=== PATIENT | male | born 1970 | race Caucasian/White ===

== ENCOUNTER 2021-11-29 11:32 | Emergency (ER) | payer OTHER, SELFPAY ==
[2021-11-29 11:48] VITALS: PULSE 95; RESP 20; TEMP 37.3; O2SAT 97; BMI 24.1
[2021-11-29 16:12] LABS: MANUAL DIFF FLAG NO
[2021-11-29 16:22] LABS: Basophils Percent Auto 0.3 % (0-2); Eosinophils Absolute Auto 0.1 X10*3/uL (0.0-0.4); Eosinophils Percent Auto 1.4 % (0-4); Hemoglobin 13.8 g/dl (14.0-18.0); Imm Gran Abs Auto 0.03 X10*3/uL (0.00-0.03); Imm Gran Pct Auto 0.5 % (0.0-0.4); Lymphocytes Absolute Auto 0.8 X10*3/uL (1.2-4.9); Lymphocytes Percent Auto 13.7 % (20-40); Mean Corpuscular HGB Conc 32.1 g/dl (31.0-36.0); Mean Corpuscular Hemoglobin 27.2 pg (27.0-33.0); Mean Corpuscular Volume 84.8 fL (80.0-98.0); Mean Platelet Volume 10.4 fL (9.4-12.4); Monocytes Absolute Auto 0.6 X10*3/uL (0.1-1.2); Monocytes Percent Auto 10.3 % (2-11); Neutrophils Absolute Auto 4.4 x10*3/uL (2.0-8.3); Neutrophils Percent Auto 73.8 % (45-73); Platelet Count 187 X10*3/uL (160-400); Red Blood Count 5.07 X10*6/uL (4.60-5.80); Red Cell Distribution Width 17.2 % (11.0-16.0); White Blood Count 5.9 X10*3/uL (4.8-10.8)
[2021-11-29 16:24] LABS: Appearance Urine Clear; Color Urine Yellow; Glucose Urine UA Negative (Negative); Leukocyte Esterase Urine Negative (Negative); Nitrite Urine Negative (Negative); PH 7.5 (5.0-9.0); Urine Blood Negative (Negative); Urine Ketones Negative (Negative); Urine Protein Negative (Neg-Trace)
--- NOTE | 2021-11-29 16:29 | ED_ITS ---
HPI - Extremity Problem General Chief complaint: Extremity Problem Stated complaint: Neuropathy Time Seen by Provider: 11/29/21 15:04 Source: patient Mode of arrival: ambulatory Limitations: no limitations History of Present Illness HPI Narrative: Patient presents emergency department for evaluation of chronic neuropathy. Patient states that he is in remission from colorectal cancer since 2019. After receiving chemo and radiation as well as surgery he developed neuropathy to the bilateral feet. States that this is been progressing over time. Over the past few months it is seemed increasingly more painful increasing numbness to the feet and having shooting pain off the bilateral legs. Reporting the right to be worse than the left. He states that he called his oncologist locally approximately 3 months ago to discuss his symptoms, oncology reviewed an MRI that he had approximately 1 year ago with his primary care provider in [place]. He states he was advised there is likely something pinching the nerve around the area of L5-L6, but recall the specifics. When asked if there is concern for a mass he states no. He is currently taking gabapentin 300 mg 3 times daily as well as ibuprofen throughout the day without significant change to his symptoms. He would like to see a neurologist, however he states he has contacted multiple local neurologists and was advised that he needs a referral from a primary care provider which he has not established care with any local PCP at this time. Denies identifiable precipitating injury, fevers, chills, burning with micturition, urinary frequency, urgency, hesitancy, bladder or bowel dysfunction, numbness or tingling of the perineum. Denies any recent surgical procedures, any known immune compromising conditions, or IV drug usage. Related Data Allergies Allergy/AdvReac Type Severity Reaction Status Date / Time No Known Allergies Allergy Verified 11/29/21 11:53 Review of Systems Review of Systems: Constitutional: No weight loss. No fever. No chills. No weakness. No fatigue. Eye: No swelling. No redness. ENT: No sore throat. No rhinorrhea. No nasal congestion. No sore throat. No difficulty swallowing. Skin: No rash. No itching. Cardiovascular: No chest pain. No chest pressure. No palpitations. No pedal edema. Respiratory: No shortness of breath. No cough. No sputum production. Gastrointestinal: No anorexia. No nausea. No vomiting. No diarrhea. No abdominal pain. No blood in stool. Genitourinary: No burning micturition. No urinary frequency. No incontinence. Neurologic: No headache. No dizziness. No pre-syncope/ syncope. No unilateral weakness. No ataxia. Positive numbness. No change in bowel or bladder control. Musculoskeletal: No muscle pain. No back pain. No joint pain. No stiffness. Hematologic: No bleeding. No bruising. Lymphatics: No enlarged lymph nodes. Psychiatric:No depression. No anxiety. Endocrine: No polyuria. No polydipsia. Yes all other systems are reviewed and are negative [facility] Past Medical History Attestation statement: The following information was validated with the patient. Source: old records reviewed Social History Social History Advance Directives: No Advance Directives Information Provided: Yes Physical Exam Vital Signs: Vital Signs: Last Vital Signs Temp 98.3 F 11/29/21 16:52 Pulse 75 11/29/21 16:52 Resp 16 11/29/21 16:52 BP 150/89 H 11/29/21 16:52 Pulse Ox 99 11/29/21 16:52 O2 Del Method 11/29/21 16:52 BMI result Body Mass Index 24.1 Appearance: Alert.?Oriented to person, place and time. No acute distress. ?Normal affect. Eyes: Pupils equal, round and reactive to light.? ENT: Pharynx normal.?? Neck: Normal inspection.? Neck supple.?? CVS: Heart sounds normal. Normal heart rate and rhythm.? Pulses normal; bilateral radial pulses 2+, bilateral posterior tibial/dorsalis pedis pulses 2+.? Respiratory: No respiratory distress.? Lung sounds clear to auscultation bilaterally?? Abdomen: Soft and non-tender. Normoactive bowel sounds. ? Skin: Skin warm and dry.? Normal skin color.? ? Extremities: No lower extremity edema.? No calf ttp? Back: No CVA tenderness. No midline spinal tenderness, step-off's, or deformity. Full ROM intact in bilateral lower extremities. No rashes, lesions, areas of induration or fluctuance, or signs of infection noted., Neuro: Moves all extremities spontaneously. 5/5 strength in hip extension/flexion, abduction, adduction. Sensation to light touch intact bilaterally. Patellar and Achilles reflex 2+ bilaterally. No ataxia, gait normal and steady. No focal neuro deficits. Course Course Course Narrative: patient is a 51-year-old male with a past medical history of colorectal cancer in remission, and peripheral neuropathy presented to emergency department for evaluation neuropathy. Requesting referral to Neurology. He states he is contacted Neurology associated with this hospital system but was advised that they will only accept referral from primary care provider which he does not have locally as he moved from [place] earlier this year. Reports worsening of his chronic neuropathy to the bilateral feet with shooting pains up his legs over the past few months. Pain is most likely involvement of his chronic neuropathy however will obtain basic labs including CBC, CMP, B12, thyroid level, urinalysis. Reevaluation(s) Reevaluation #1: CBC is overall unremarkable, very mild normocytic anemia with hemoglobin at 13.8. CMP is overall unremarkable. TSH is normal. B12 is pending, will not result today. Random glucose is 79, urinalysis without glucosuria or ketonuria, does not seem consistent with diabetic related neuropathy. On neurological exam there are no deficits, cannot completely exclude herniated disc as a source for worsening neuropathy. Not consistent with spinal fracture, spinal infection, epidural abscess, AAA, epidural abscess, or dissection. On exam no concern for cauda equina syndrome. discussed with patient that he may need to have outpatient MRI obtained given has been approximately 1 year since his prior there were some findings by his account, however no indications for emergent MRI from the emergency department. Plan for discharge home, Continued use of gabapentin and anti-inflammatories as prescribed, will provide contact information for neurologist office at his request in send referral, however he still may need to have a primary care referral as he was previously advised. Reviewed worrisome signs and symptoms to return back to the emergency department for. All questions were answered. Patient discharged home in stable condition. Ambulatory with a steady gait. Time: 17:38 MDM - Extremity (Nontraumatic) Lab Data Result diagrams: 11/29/21 15:46 11/29/21 15:46 Labs: Lab Results 11/29/21 11/29/21 11/29/21 Range/Units 15:46 15:46 16:12 WBC 5.9 (4.8-10.8) X10*3/uL RBC 5.07 (4.60-5.80) X10*6/uL Hgb 13.8 L (14.0-18.0) g/dl Hct 43.0 (42.0-52.0) % MCV 84.8 (80.0-98.0) fL MCH 27.2 (27.0-33.0) pg MCHC 32.1 (31.0-36.0) g/dl RDW 17.2 H (11.0-16.0) % Plt Count 187 (160-400) X10*3/uL MPV 10.4 (9.4-12.4) fL Immature Gran % (Auto) 0.5 H (0.0-0.4) % Neut % (Auto) 73.8 H (45-73) % Lymph % (Auto) 13.7 L (20-40) % [place] % (Auto) 10.3 (2-11) % Eos % (Auto) 1.4 (0-4) % Baso % (Auto) 0.3 (0-2) % Lymph # (Auto) 0.8 L (1.2-4.9) X10*3/uL [place] # (Auto) 0.6 (0.1-1.2) X10*3/uL Eos # (Auto) 0.1 (0.0-0.4) X10*3/uL Baso # (Auto) 0.0 (0.0-0.2) X10*3/uL Abs Immat Gran (auto) 0.03 (0.00-0.03) X10*3/uL Absolute Neuts (auto) 4.4 (2.0-8.3) x10*3/uL Absolute Nucleated RBC 0.000 (0.0-0.012) X10*3/uL Nucleated RBC % (auto) 0.0 (0.0-0.2) /100WBC Sodium 139 (135-145) mmol/L Potassium 4.0 (3.3-5.1) mmol/L Chloride 98 (96-108) mmol/L Carbon Dioxide 28 (22-29) mmol/L Anion Gap 17 (12-20) BUN 11 (9-16) mg/dL Creatinine 0.74 (0.5-1.4) mg/dL Estim Creat Clear Calc 137.3 Estimated GFR > 60 Random Glucose 79 (60-115) mg/dL Calcium 9.5 (8.4-10.2) mg/dL Magnesium 1.9 (1.6-2.6) mg/dL Total Bilirubin 0.6 (0.0-1.0) mg/dL AST 33 (5-37) U/L ALT 25 (0-40) U/L Alkaline Phosphatase 72 (39-117) U/L Total Protein 8.3 H (6.5-8.0) g/dL Albumin 4.4 (3.5-5.0) g/dL TSH 0.58 (0.32-4.0) uIU/mL Urine Color Yellow Urine Appearance Clear Urine pH 7.5 (5.0-9.0) Ur Specific [place] 1.020 (1.005-1.025) Urine Protein Negative (Neg-Trace) mg/dL Urine Glucose (UA) Negative (Negative) mg/dL Urine Ketones Negative (Negative) mg/dL Urine Blood Negative (Negative) Urine Nitrite Negative (Negative) Ur Leukocyte Esterase Negative (Negative) Discharge Plan Discharge Clinical Impression: Peripheral neuropathy Patient Disposition: Home, Self-Care Instructions: Peripheral Neuropathy (ED) Additional Instructions: return back to emergency department with any new or worsening symptoms or concerns. Your blood work today was overall normal. I do not see evidence of diabetes as we discussed. Please contact primary care offices to obtain a new provider, and discuss with your previous primary care provider a possible referral to a local neurologist as you requested. Continue taking your medications as prescribed. You may return to emergency department with any new or worsening symptoms or concerns. Interventions: ED Discharge Assessment Last Done: 11/29/21 18:09 Discharge Date/Time: 11/29/21 18:09
[2021-11-29 16:31] LABS: Alanine Aminotransferase 25 U/L (0-40); Albumin Level 4.4 g/dL (3.5-5.0); Alkaline Phosphatase 72 U/L (39-117); Anion Gap 17 (12-20); Aspartate Amino Transferase 33 U/L (5-37); Bilirubin Total 0.6 mg/dL (0.0-1.0); Blood Urea Nitrogen 11 mg/dL (9-16); Calcium 9.5 mg/dL (8.4-10.2); Carbon Dioxide 28 mmol/L (22-29); Chloride 98 mmol/L (96-108); Creatinine Clr Calc Pharmacy 137.3; Estimated Glomerular Filt Rate > 60; Glucose Random 79 mg/dL (60-115); Magnesium 1.9 mg/dL (1.6-2.6); Sodium 139 mmol/L (135-145); Total Protein 8.3 g/dL (6.5-8.0)
[2021-11-29 16:52] VITALS: BP 150/89; PULSE 75; RESP 16; TEMP 36.8; O2SAT 99
[2021-11-29 16:52] LABS: TSH reflex Free T4 0.58 uIU/mL (0.32-4.0)
[2021-11-30 05:40] LABS: Vitamin B12 563 pg/mL (200-900)
== END 2021-11-29 18:09 | disposition home or self-care (01) ==
PROVIDERS: Nurse Practitioner Family; Emergency Provider Emergency Medicine
DX: G62.9 Polyneuropathy, unspecified (principal); Z79.899 Other long term (current) drug therapy
CPT/HCPCS: 36415; 80053; 81003; 82607; 83735; 84443; 85025; 99283

== ENCOUNTER 2023-05-03 12:17 | Inpatient (IN) | payer OTHER, SELFPAY ==
--- NOTE | ~2023-05-03 | XR_ITS ---
EXAMINATION: XR CHEST CLINICAL INFORMATION: Chest pain COMPARISON: None available. TECHNIQUE: 2 views of the chest were obtained. FINDINGS: Lungs are well-inflated and clear. Trachea is midline in position. No interstitial disease, consolidation or mass. No pleural effusion or pneumothorax. Cardiac silhouette and pulmonary vessels are normal in size. The mediastinum and vikas have normal contour. There appears to be an old fracture deformity of the mid third of the right clavicle. XR/XR chest 2V IMPRESSION: Lungs have a normal appearance. No acute cardiopulmonary abnormality.
--- NOTE | ~2023-05-03 | CT_ITS ---
EXAMINATION: CT ANGIOGRAM OF THE CHEST WITH AND WITHOUT CONTRAST (CT PULMONARY ANGIOGRAM FOR PE) CLINICAL INFORMATION: Reason for Exam dyspnea COMPARISON: Previous chest x-ray from earlier the same day TECHNIQUE: Prior to contrast administration, noncontrast localization images were obtained. Subsequently, multidetector volumetric imaging was performed from the thoracic inlet to below the diaphragms following the administration of 65 mL Omnipaque 350 intravenous contrast. No contrast reaction reported Sagittal, coronal, and MIP oblique sagittal reformatted images were obtained on the CT workstation, uploaded to PACS, and reviewed. This CT examination was performed using dose optimization techniques as appropriate, variously including the following: *Automated exposure control *Adjustment of mA and/or kV according to patient size (this includes techniques or standardized protocols for targeted exams where dose is matched to indication/reason for exam; i.e. extremities or head) *Use of iterative reconstruction technique Total exam dose-length product 344 mGy-cm FINDINGS: QUALITY OF STUDY/CONTRAST BOLUS: Satisfactory. PULMONARY ARTERIES: No pulmonary emboli. THORACIC AORTA: No aneurysm. LUNG: Scarring or or subsegmental atelectasis in the posterior segment of the right upper lobe axial image 120 series 7. Lungs are otherwise clear. PLEURA: No pleural effusion or pneumothorax. MEDIASTINUM: Normal heart size. No pericardial effusion. No hilar or mediastinal lymphadenopathy. No evidence of septal bowing or right heart strain. CORONARY ARTERY CALCIFICATION: Moderate CHEST WALL/AXILLA: No axillary or internal mammary lymphadenopathy. OSSEOUS STRUCTURES: No acute or suspicious osseous abnormality. Old right clavicle fracture. Old right posterior 10th rib fracture. UPPER ABDOMEN: There may be fatty infiltration of the liver. No reflux of contrast into the hepatic veins to suggest elevated right heart pressures. CT/CT angio chest PE protocol IMPRESSION: No evidence of pulmonary embolism. No evidence for acute disease in the chest. Moderate coronary artery calcification. VTE: negative
[2023-05-03 12:24] VITALS: BP 127/81; BP 137/90; PULSE 94; PULSE 97; RESP 20; O2SAT 100; BMI 23.8
--- NOTE | 2023-05-03 12:30 | ECG_ITS ---
Test Reason : chest pain Blood Pressure : / mmHG Vent. Rate : 095 BPM Atrial Rate : 095 BPM P-R Int : 154 ms QRS Dur : 078 ms QT Int : 392 ms P-R-T Axes : 070 028 049 degrees QTc Int : 492 ms Normal sinus rhythm Prolonged QT Abnormal ECG No previous ECGs available Referred By: Austin Luong Electronically Signed By:JULIAN ONTIVEROS MD
--- NOTE | 2023-05-03 12:38 | ED.CHESTPAIN ---
HPI - Chest Pain General Chief Complaint: Chest Pain Stated Complaint: CP,SOB PER EMS Time Seen by Provider: 05/03/23 12:18 Source: patient and EMS Mode of arrival: EMS Limitations: no limitations History of Present Illness HPI narrative: 52 years old with history of hypertension, colorectal cancer status post chemo and left-sided colostomy, presents emergency room for episode of sudden onset chest pain associated with diffuse cramping to legs and arbs. Patient also reports that he is having hard time catching his breath. Patient reports that symptoms started while he was at work and describes the pain as central, nonradiating, constant but with different intensity, 7/10 at worse. Patient reports mild improvement with resting. Patient denies cough or fever Reports that colostomy is working appropriately Denies nausea, vomiting, reports mild abdominal pain when pain started that has since then resolved. Related Data Home Medications Medication Instructions Recorded Confirmed amlodipine 2.5 mg tablet 2.5 mg PO DAILY 05/03/23 05/03/23 lisinopril 20 1 tab PO DAILY 05/03/23 05/03/23 mg-hydrochlorothiazide 12.5 mg tablet Allergies Allergy/AdvReac Type Severity Reaction Status Date / Time No Known Allergies Allergy Verified 11/29/21 11:53 [facility] Past Medical History Medical History (Updated 05/03/23 @ 17:13 by Austin Luong MD) Hypertension Social History Social History Alcohol intake: current Smoked in Last 30 Days: No Use of substances other than those prescribed or required for medical reasons: Yes Substance Use Type: Marijuana Advance Directives: No Advance Directives Information Provided: Yes Physical Exam Vital Signs: Vital Signs: Last Vital Signs Temp 98.2 F 05/03/23 16:04 Pulse 104 H 05/03/23 16:04 Resp 18 05/03/23 16:04 BP 139/86 05/03/23 16:04 Pulse Ox 97 05/03/23 16:04 O2 Del Method Room Air 05/03/23 16:04 BMI result Body Mass Index 23.8 General: Alert, Not in Distress Skin: No rash, warm HEENT: Atraumatic, No Exudate or Pharyngeal Erythema Resp: Normal Breath sounds bilaterally Cardio: Regular rate and Rhythm, Normal S1, S2 ABD: Abd soft, non tender, no guarding or rebound. Normal Bowel sounds. norml functioning colostomy : No cva tenderness Neuro: Alert, oriented x4, PERRL Strenght 5/5 on all extremities Sensation is preserved in both lower and upper extremities Index to nose: normal Cranial Nerves II-XII grossly intact No dysarthria, or aphasia No neglet. Visual atkins are normal bilaterally Psych: Cooperative, NO SI Course Reevaluation(s) Reevaluation #1: Patient reports improvement of pain after nitroglycerin. Patient's blood work which I personally reviewed showed elevated lactic acid of 6.5 at this time I am not sure of the source of the lactic acidosis. We were unable to obtain an reliable oral temperature therefore will insert Olmedo catheter to obtain a temperature from the bladder as a core temperature. We also had blood cultures, urine cultures and will start the patient on IV fluids. Patient lab work was also remarkable for potassium of 5.9, reviewing the EKG that he is some minimal peak T-wave which may be secondary to hyperkalemia therefore will give calcium. Patient is systemically looks well. Time: 13:00 Reevaluation #2: Multiple unsuccessful attempts to place Olmedo catheter. It appears that cataract get stuck at the prostate site, q.day catheter does not have time sensitive Olmedo. Patient is compliant at this time we get urine culture has a clean catch. As for his temperature repeated oral temperature is 97.4. Patient feels better. Will repeat 2nd troponin. + Time: 14:54 Reevaluation #3: Second troponin is negative and lactic acid has improved after 1 L of fluid. At this time patient does not have any signs of sepsis. Unclear why had an elevated lactic acid on presentation. Considering fissure of the pain which improved with nitro started the with minimal exertion I discussed the case with cardiology who agrees with unstable angina among possible differential diagnosis and recommended admission for inpatient stress test. Patient reports the pain has completely resolved. Patient had multiple episodes of PVCs on monitor. Will admit Time: 17:11 Consultations Consultation #1: Cardiology: Admit for inpatient stress test Medications Administered Discontinued Medications Generic Name Dose Route Start Last Admin Trade Name Freq PRN Reason Stop Dose Admin Sodium Chloride 500 mls @ 999 mls/hr 05/03/23 13:45 05/03/23 13:51 Ns IV 05/03/23 14:15 999 mls/hr .Q31M JOAO Administration Calcium Gluconate 1 gm in 50 mls @ 50 mls/hr 05/03/23 13:43 05/03/23 13:51 Calcium Gluconate IV 05/03/23 14:42 50 mls/hr ONCE ONE Administration Iohexol 85 ml 05/03/23 15:52 05/03/23 15:53 Iohexol 350 Mg/Ml 100 Ml Infus..Btl IV 05/03/23 15:53 85 ml ONCE ONE Administration Lorazepam 1 mg 05/03/23 14:03 05/03/23 14:06 Lorazepam 2 Mg/Ml Vial IVPUSH 05/03/23 14:04 1 mg ONCE ONE Administration Medical Decision Making Medical Decision Making [facility] Narrative: Patient presented to the emergency for chest pain which appears to be exertional in nature. Moderate in intensity on arrival, patient has received 324 mg of aspirin EN route. Possible differential diagnosis include ACS, musculoskeletal pain, PE Patient temperature was mildly hypothermic on arrival. Patient however does not have any other signs of infection therefore I think this is possible to be an error Due to the colon cancer will defer rectal temp and will repeat temp in the minutes Plan CBC, BMP, serial troponin at 0 and 3 hours Chest x-ray D-dimer EKG Lab Data 05/03/23 12:41 05/03/23 12:41 Labs: Lab Results 05/03/23 05/03/23 05/03/23 Range/Units 12:41 12:44 12:48 WBC 8.8 (4.8-10.8) X10*3/uL RBC 5.45 (4.60-5.80) X10*6/uL Hgb 16.6 D (14.0-18.0) g/dl Hct 48.8 (42.0-52.0) % MCV 89.5 (80.0-98.0) fL MCH 30.5 (27.0-33.0) pg MCHC 34.0 (31.0-36.0) g/dl RDW 14.4 (11.0-16.0) % Plt Count 219 (160-400) X10*3/uL MPV 10.3 (9.4-12.4) fL Immature Gran % (Auto) 0.8 H (0.0-0.4) % Neut % (Auto) 83.6 H (45-73) % Lymph % (Auto) 7.1 L (20-40) % [place] % (Auto) 8.0 (2-11) % Eos % (Auto) 0.2 (0-4) % Baso % (Auto) 0.3 (0-2) % Lymph # (Auto) 0.6 L (1.2-4.9) X10*3/uL [place] # (Auto) 0.7 (0.1-1.2) X10*3/uL Eos # (Auto) 0.0 (0.0-0.4) X10*3/uL Baso # (Auto) 0.0 (0.0-0.2) X10*3/uL Abs Immat Gran (auto) 0.07 H (0.00-0.03) X10*3/uL Absolute Neuts (auto) 7.3 (2.0-8.3) x10*3/uL Absolute Nucleated RBC 0.000 (0.0-0.012) X10*3/uL Nucleated RBC % (auto) 0.0 (0.0-0.2) /100WBC D-Dimer High Sensitivty 291 NG/ML VBG pH 7.47 H (7.32-7.43) VBG pCO2 32 mmHg VBG pO2 30 mmHg VBG HCO3 24 (22-26) mmol/L VBG O2 Saturation 41.0 % VBG Base Excess 1.3 mmol/L Sodium 137 (135-145) mmol/L Potassium 5.9 H (3.3-5.1) mmol/L Chloride 97 (96-108) mmol/L Carbon Dioxide 24 (22-29) mmol/L Anion Gap 22 H (12-20) BUN 10 (9-16) mg/dL Creatinine 1.41 H (0.5-1.4) mg/dL Estim Creat Clear Calc 71.2 Estimated GFR 53 Random Glucose 155 H (60-115) mg/dL Lactic Acid 6.5 H* (0.5-2.0) mmol/L Lactic Acid F/U @ 2Hr (0.5-2.0) mmol/L Calcium 10.0 (8.4-10.2) mg/dL Troponin I High Sens 4.1 (<3.5-35.0) ng/L 05/03/23 Range/Units 15:11 WBC (4.8-10.8) X10*3/uL RBC (4.60-5.80) X10*6/uL Hgb (14.0-18.0) g/dl Hct (42.0-52.0) % MCV (80.0-98.0) fL MCH (27.0-33.0) pg MCHC (31.0-36.0) g/dl RDW (11.0-16.0) % Plt Count (160-400) X10*3/uL MPV (9.4-12.4) fL Immature Gran % (Auto) (0.0-0.4) % Neut % (Auto) (45-73) % Lymph % (Auto) (20-40) % [place] % (Auto) (2-11) % Eos % (Auto) (0-4) % Baso % (Auto) (0-2) % Lymph # (Auto) (1.2-4.9) X10*3/uL [place] # (Auto) (0.1-1.2) X10*3/uL Eos # (Auto) (0.0-0.4) X10*3/uL Baso # (Auto) (0.0-0.2) X10*3/uL Abs Immat Gran (auto) (0.00-0.03) X10*3/uL Absolute Neuts (auto) (2.0-8.3) x10*3/uL Absolute Nucleated RBC (0.0-0.012) X10*3/uL Nucleated RBC % (auto) (0.0-0.2) /100WBC D-Dimer High Sensitivty NG/ML VBG pH (7.32-7.43) VBG pCO2 mmHg VBG pO2 mmHg VBG HCO3 (22-26) mmol/L VBG O2 Saturation % VBG Base Excess mmol/L Sodium (135-145) mmol/L Potassium (3.3-5.1) mmol/L Chloride (96-108) mmol/L Carbon Dioxide (22-29) mmol/L Anion Gap (12-20) BUN (9-16) mg/dL Creatinine (0.5-1.4) mg/dL Estim Creat Clear Calc Estimated GFR Random Glucose (60-115) mg/dL Lactic Acid (0.5-2.0) mmol/L Lactic Acid F/U @ 2Hr 1.9 (0.5-2.0) mmol/L Calcium (8.4-10.2) mg/dL Troponin I High Sens < 2.7 (<3.5-35.0) ng/L Independent Interpretation I performed an independent interpretation of an: EKG Interpretation: Sinus rhythm, unchanged from EKG from EMS. Discharge Plan Discharge Clinical Impression: Chest pain Patient Disposition: Admitted As Inpatient Prescriptions: No Action lisinopril-hydrochlorothiazide 20-12.5 mg tablet 1 tab PO DAILY amlodipine 2.5 mg tablet 2.5 mg PO DAILY
[2023-05-03 12:47] LABS: MANUAL DIFF FLAG NO
[2023-05-03 12:51] LABS: Venous Blood Gas Refer to POC result
[2023-05-03 12:53] LABS: VBG Base Excess 1.3 mmol/L; VBG HCO3 24 mmol/L (22-26); VBG pCO2 32 mmHg; VBG pH 7.47 (7.32-7.43); VBG pO2 30 mmHg
[2023-05-03 13:02] LABS: Basophils Percent Auto 0.3 % (0-2); Eosinophils Percent Auto 0.2 % (0-4); Hematocrit 48.8 % (42.0-52.0); Hemoglobin 16.6 g/dl (14.0-18.0); Imm Gran Abs Auto 0.07 X10*3/uL (0.00-0.03); Imm Gran Pct Auto 0.8 % (0.0-0.4); Lymphocytes Absolute Auto 0.6 X10*3/uL (1.2-4.9); Lymphocytes Percent Auto 7.1 % (20-40); Mean Corpuscular Hemoglobin 30.5 pg (27.0-33.0); Mean Corpuscular Volume 89.5 fL (80.0-98.0); Mean Platelet Volume 10.3 fL (9.4-12.4); Monocytes Absolute Auto 0.7 X10*3/uL (0.1-1.2); Neutrophils Absolute Auto 7.3 x10*3/uL (2.0-8.3); Neutrophils Percent Auto 83.6 % (45-73); Platelet Count 219 X10*3/uL (160-400); Red Blood Count 5.45 X10*6/uL (4.60-5.80); Red Cell Distribution Width 14.4 % (11.0-16.0); White Blood Count 8.8 X10*3/uL (4.8-10.8)
[2023-05-03 13:06] LABS: D Dimer High Sensitivity 291 NG/ML
[2023-05-03 13:14] LABS: Troponin-I High Sensitivity 4.1 ng/L (<3.5-35.0)
[2023-05-03 13:25] LABS: Potassium 5.9 mmol/L (3.3-5.1)
[2023-05-03 13:26] LABS: Anion Gap 22 (12-20); Blood Urea Nitrogen 10 mg/dL (9-16); Carbon Dioxide 24 mmol/L (22-29); Chloride 97 mmol/L (96-108); Creatinine Clr Calc Pharmacy 71.2; Estimated Glomerular Filt Rate 53; Glucose Random 155 mg/dL (60-115); Sodium 137 mmol/L (135-145)
[2023-05-03 13:35] LABS: Lactic Acid 6.5 mmol/L (0.5-2.0)
[2023-05-03] MEDS: Calcium Gluconate/NaCl,Iso-Osm 1 GM/50 ML PLAST..BAG IV (13:51)
[2023-05-03] MEDS: 0.9 % Sodium Chloride 500 ML 999 ML IV (13:51)
[2023-05-03] MEDS: LORazepam 2 MG/ML VIAL 1 MG IVPUSH (14:06)
[2023-05-03 14:47] LABS: Reflex Lactate? Lactic Acid Added
[2023-05-03 15:25] LABS: ~Lactic Acid-LAB USE ONLY 1.9 mmol/L (0.5-2.0)
[2023-05-03 15:36] LABS: Troponin-I High Sensitivity < 2.7 ng/L (<3.5-35.0)
[2023-05-03] MEDS: iohexoL 350 MG/ML 100 ML INFUS..BTL 85 ML IV (15:53)
[2023-05-03 16:04] VITALS: BP 139/86; PULSE 104; RESP 18; TEMP 36.8; O2SAT 97
--- NOTE | 2023-05-03 16:50 | P.HPHOSP_ITS ---
<Statement entered by Tigre Patino MD - 05/16/23 15:07> The patient was seen and evaluated with Mercedes Griggs NP. I agree with her note, assessment and plan with the following. In summary, A 52 years old male with PMH of HTN and GERD presenting with central chest pain. #Chest pain EKG non specific , low Trop Monitor on telemetry Cardiology consultation Aspirin #MADDIE with hyperkalemia Lokelma, follow BMP IV fluids avoid nephrotoxins Rest of evaluations by [employer] note. History of Present Illness Date of Service: 05/03/23 Chief Complaint: Chest pain 52-year-old man with history of hypertension presented to the ER with complaints of sudden onset central, nonradiating, constant, 7/10 chest pain. He also reports a hard time catching his breath, diffuse cramping to legs and arms. 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 He developed chest pain at that time and had for at least 2 hours. Denied nausea, vomiting, diarrhea, recent travel, sick contacts, recent illness. Potassium noted to be elevated at 5.9, initial lactic acid 6.5 down to 1.9, creatinine 1.41, troponin 2.7. EKG shows peaked T-waves and normal sinus rhythm without any ischemic changes. Chest x-ray without consolidation or effusion. Vital signs are stable. Plan is to place the patient on observation for chest pain. Review of Systems 2 Review of Systems: Denies any recent fever chills or decrease in appetite respiratory denies any shortness of breath or cough cardiovascular see HPI gastrointestinal denies any dysphagia abdominal pain nausea vomiting or diarrhea genitourinary denies any dysuria frequency or hematuria musculoskeletal denies any joint pain or swelling neuropsych denies any weakness or seizures all other systems reviewed are negative [facility] Medical History (Updated 05/03/23 @ 17:13 by Austin Luong MD) Hypertension Family History (Updated 05/03/23 @ 18:34 by Mercedes Griggs NP) Mother Dementia Social History Alcohol intake: current Patient Tobacco Use Status: Never used Tobacco Smoked in Last 30 Days: No Use of substances other than those prescribed or required for medical reasons: Yes Substance Use Type: Marijuana Advance Directives: No Advance Directives Information Provided: Yes Nutrition Risks: No Nutritional Risk Meds Allergies Allergy/AdvReac Type Severity Reaction Status Date / Time No Known Allergies Allergy Verified 11/29/21 11:53 Active Medications: Current Medications Acetaminophen (Acetaminophen 325 Mg Tablet) 650 mg PO Q6H PRN PRN Reason: Pain, Mild (Pain Scale 1-3) Enoxaparin Sodium (Enoxaparin Sodium 40 Mg/0.4 Ml Syringe) 40 mg SUBCUT Q24H JOAO Nitroglycerin (Nitroglycerin 0.4 Mg Tab.Subl) 0.4 mg SUBLINGUAL Q5MX3 PRN PRN Reason: Chest Pain Ondansetron HCl (Ondansetron Hcl 4 Mg/2 Ml Vial) 4 mg IVPUSH Q8H PRN PRN Reason: Nausea and Vomiting Sodium Chloride (0.9 % Sodium Chloride Flush 3 Ml Syringe) 3 ml IVFLUSH QSHIFT JOAO Home Medications Medication Instructions Recorded Confirmed Last Taken Type amlodipine 2.5 mg tablet 2.5 mg PO DAILY 05/03/23 05/03/23 05/03/23 History lisinopril 20 1 tab PO DAILY 05/03/23 05/03/23 05/03/23 History mg-hydrochlorothiazide 12.5 mg tablet Physical Exam 2 Vital Signs and Narrative: Vital Signs: Last Vital Signs Temp 98.2 F 05/03/23 16:04 Pulse 104 H 05/03/23 16:04 Resp 18 05/03/23 16:04 BP 139/86 05/03/23 16:04 Pulse Ox 97 05/03/23 16:04 O2 Del Method Room Air 05/03/23 16:04 BMI result Body Mass Index 23.8 Appearing in no acute distress head is normocephalic atraumatic eyes pupils are PERRLA sclera is anicteric mouth throat mucous membranes are intact and moist neck is supple no lymphadenopathy, no JVD noted lung sounds are clear to auscultation heart regular rate rhythm, clear S1, S2 positive bowel sounds, abdomen is soft, nontender neuro patient is alert x3, no focal deficits Results Labs 05/03/23 12:41 05/03/23 12:41 Labs: Laboratory Results - last 24 hr 05/03/23 05/03/23 05/03/23 12:41 12:44 12:48 MCV 89.5 MCH 30.5 MCHC 34.0 RDW 14.4 Plt Count 219 MPV 10.3 Immature Gran % (Auto) 0.8 H Neut % (Auto) 83.6 H Lymph % (Auto) 7.1 L [place] % (Auto) 8.0 Eos % (Auto) 0.2 Baso % (Auto) 0.3 Lymph # (Auto) 0.6 L [place] # (Auto) 0.7 Eos # (Auto) 0.0 Baso # (Auto) 0.0 Abs Immat Gran (auto) 0.07 H Absolute Neuts (auto) 7.3 Absolute Nucleated RBC 0.000 Nucleated RBC % (auto) 0.0 D-Dimer High Sensitivty 291 VBG pH 7.47 H VBG pCO2 32 VBG pO2 30 VBG HCO3 24 VBG O2 Saturation 41.0 VBG Base Excess 1.3 Anion Gap 22 H Estim Creat Clear Calc 71.2 Estimated GFR 53 Random Glucose 155 H Lactic Acid 6.5 H* Lactic Acid F/U @ 2Hr Calcium 10.0 Troponin I High Sens 4.1 05/03/23 15:11 MCV MCH MCHC RDW Plt Count MPV Immature Gran % (Auto) Neut % (Auto) Lymph % (Auto) [place] % (Auto) Eos % (Auto) Baso % (Auto) Lymph # (Auto) [place] # (Auto) Eos # (Auto) Baso # (Auto) Abs Immat Gran (auto) Absolute Neuts (auto) Absolute Nucleated RBC Nucleated RBC % (auto) D-Dimer High Sensitivty VBG pH VBG pCO2 VBG pO2 VBG HCO3 VBG O2 Saturation VBG Base Excess Anion Gap Estim Creat Clear Calc Estimated GFR Random Glucose Lactic Acid Lactic Acid F/U @ 2Hr 1.9 Calcium Troponin I High Sens < 2.7 Imaging Radiologist's Impressions: Impressions Chest X-Ray 05/03/23 13:08 IMPRESSION: Lungs have a normal appearance. No acute cardiopulmonary abnormality. Assessment and Plan (1) Chest pain: Status: Acute Plan 52-year-old man placed on observation for chest pain Chest pain Monitor on telemetry Cardiology consultation Aspirin Hyperkalemia secondary to MADDIE lokelma follow up BMP MADDIE unknown etiology check UA IV fluids avoid nephrotoxins History of colorectal cancer Left-sided colostomy DVT prophylaxis with Lovenox Full code Observation Quality Stroke Does the patient have a stroke diagnosis?: No VTE Prior VTE?: No VTE Risk Level:: Medical - moderate - high VTE Device Contraindication: Treatment Not Indicated VTE Drug Contraindication: N/A - Med Ordered
--- NOTE | 2023-05-03 16:55 | PHA.MEDREC ---
Pharmacy Consult ? Medication Reconciliation Pharmacy has completed the medication reconciliation. Patient reported medicaitons. Amira Cunningham, Vero[employer]
[2023-05-03 17:31] VITALS: BP 130/89; PULSE 101; RESP 18; TEMP 36.8; O2SAT 95
[2023-05-03] MEDS: Enoxaparin Sodium 40 MG/0.4 ML SYRINGE SUBCUT (17:59)
[2023-05-03] MEDS: Acetaminophen 325 MG TABLET 650 MG PO (18:04)
[2023-05-03 18:53] LABS: Appearance Urine Clear; Color Urine Yellow; Glucose Urine UA Negative (Negative); Leukocyte Esterase Urine Negative (Negative); Nitrite Urine Negative (Negative); PH 6.5 (5.0-9.0); Specific Gravity - Urine >= 1.030 (1.005-1.025); Urine Blood Negative (Negative); Urine Ketones Trace mg/dL (Negative); Urine Protein Trace mg/dL (Neg-Trace)
[2023-05-03 19:49] LABS: Glucose, Whole Blood 158 mg/dL (60-115)
[2023-05-03 19:55] VITALS: BP 122/80; PULSE 108; RESP 20; TEMP 36.8; O2SAT 95
[2023-05-03 21:00] VITALS: BMI 23.8
[2023-05-03 21:11] LABS: Anion Gap 15 (12-20); Blood Urea Nitrogen 10 mg/dL (9-16); Calcium 9.2 mg/dL (8.4-10.2); Carbon Dioxide 28 mmol/L (22-29); Chloride 95 mmol/L (96-108); Creatinine Clr Calc Pharmacy 98.4; Estimated Glomerular Filt Rate > 60; Glucose Random 107 mg/dL (60-115); Sodium 134 mmol/L (135-145)
[2023-05-03 23:45] VITALS: BP 125/78; PULSE 99; RESP 20; TEMP 36.9; O2SAT 92
[2023-05-03] MEDS: Zolpidem Tartrate 5 MG TABLET PO (23:50)
--- NOTE | 2023-05-04 | CA_ITS ---
Acquisition Time: 2023-05-04 10:28:34 Total Exercise Time: 00:08:12 Test Indications: CHEST PAIN Medications: Protocol: KIKE Max HR: 162 BPM 96% of Pred: 168 BPM Max BP: 184/078 mmHG Max Work Load: 10.1 METS Exercise stress test with exercise 8 min 12 sec of Kike protocol achieivng 96% MPHR, with mild SOB, without chest discomfort, with isolated PVCs and ventricular trigeminy, with normotensive response to exercise, without EKG changes. Referred By: Leobardo Nelson Overread By: Amber Obregon
[2023-05-04 03:15] VITALS: BP 125/76; PULSE 97; RESP 20; TEMP 36.2; O2SAT 94
[2023-05-04 06:22] LABS: MANUAL DIFF FLAG NO
[2023-05-04 06:52] LABS: Alanine Aminotransferase 78 U/L (0-40); Albumin Level 3.5 g/dL (3.5-5.0); Alkaline Phosphatase 70 U/L (39-117); Anion Gap 14 (12-20); Aspartate Amino Transferase 88 U/L (5-37); Bilirubin Total 1.9 mg/dL (0.0-1.0); Blood Urea Nitrogen 13 mg/dL (9-16); Carbon Dioxide 25 mmol/L (22-29); Chloride 98 mmol/L (96-108); Creatinine Clr Calc Pharmacy 132.1; Estimated Glomerular Filt Rate > 60; Glucose Random 101 mg/dL (60-115); Potassium 3.2 mmol/L (3.3-5.1); Sodium 134 mmol/L (135-145); Total Protein 7.2 g/dL (6.5-8.0)
[2023-05-04 07:08] LABS: Basophils Percent Auto 0.5 % (0-2); Eosinophils Absolute Auto 0.1 X10*3/uL (0.0-0.4); Eosinophils Percent Auto 2.5 % (0-4); Hematocrit 42.4 % (42.0-52.0); Hemoglobin 14.5 g/dl (14.0-18.0); Imm Gran Abs Auto 0.02 X10*3/uL (0.00-0.03); Imm Gran Pct Auto 0.5 % (0.0-0.4); Lymphocytes Percent Auto 22.2 % (20-40); Mean Corpuscular HGB Conc 34.2 g/dl (31.0-36.0); Mean Corpuscular Volume 90.6 fL (80.0-98.0); Mean Platelet Volume 10.5 fL (9.4-12.4); Monocytes Absolute Auto 0.7 X10*3/uL (0.1-1.2); Monocytes Percent Auto 15.6 % (2-11); Neutrophils Absolute Auto 2.6 x10*3/uL (2.0-8.3); Neutrophils Percent Auto 58.7 % (45-73); Red Blood Count 4.68 X10*6/uL (4.60-5.80); Red Cell Distribution Width 14.6 % (11.0-16.0); White Blood Count 4.4 X10*3/uL (4.8-10.8)
[2023-05-04 07:17] VITALS: BP 135/86; PULSE 91; RESP 20; TEMP 36.6; O2SAT 94
[2023-05-04 07:25] LABS: Platelet Count 127 X10*3/uL (160-400)
--- NOTE | 2023-05-04 08:58 | P.CONCA_ITS ---
History of Present Illness History of Present Illness Date of Service: 05/04/23 Requesting physician: Mercedes Griggs Consult reason: chest pain Chief complaint: Chest Pain Narrative: I was consulted to see Brando in cardiology consultation today for chest pain. 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 Sees a neurologist but has not seen 1 in 2 years. Also has not been able to establish primary care here. 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 Patient says while he was working suddenly got lightheaded. Then he said down, working with his co-worker. Then he got up and started feeling lightheaded again. He said he would follow over if he did not see down. Then went to his coworkersvan and sat down and suddenly got diaphoresis and retrosternal chest pressure. He felt like he was having heart attack. He therefore called 911. EN route he got aspirin and his pain gradually subsided. Initial EKG showed some peaked T-waves with hyperkalemia. Otherwise his EKG and troponins were negative for any acute ischemia. He has been observed overnight. He has not had any recurrent chest pain. Cardiology consult was sought for new onset chest pain. He had a chest CTA which was negative for PE. His potassium level initially was 5.9 which then corrected. His lactic acid level was 6.5 for unclear reason which corrected quickly as well. Review of Systems 2 Constitutional: Constitutional: Reports no additional constitutional complaints Eyes: Eyes: Reports no additional eye complaints Cardiovascular: Cardiovascular: Reports chest pain, Denies syncope, Denies rapid heart rate, Reports lightheadedness, Denies Loss of Consciousness, Denies palpitations and Reports dyspnea Respiratory: Respiratory: Reports no additional respiratory complaints and Reports dyspnea Gastrointestinal: Gastrointestinal: Reports no additional gastrointestinal complaints Genitourinary: Genitourinary: Reports no additional male genitourinary complaints Musculoskeletal: Musculoskeletal: Reports no additional musculoskeletal complaints Integumentary/Breasts: Skin/Breast: Reports system reviewed and no additional complaints, except as docu Neurologic: Reports system reviewed and no additional complaints, except as documented and Denies syncope Psychiatric: Psychiatric: Reports no additional psychiatric complaints Endocrine: Endocrine: Reports no additional endocrine complaints and Denies palpitations PMFSH Past Medical History Medical History Hypertension Family History Family History Mother Dementia Social History Social History Household Members: Family Household Members Other:: Takes care of mother who has Dementia Housing: House Do you presently have visiting nurse or other home services: No Alcohol intake: current Patient Tobacco Use Status: Never used Tobacco Smoked in Last 30 Days: No Patient Interested in Nicotine Replacement: No Patient Given Instructions on How to Stop Smoking: No Second Hand Smoke Exposure: No Use of substances other than those prescribed or required for medical reasons: Yes Substance Use Type: Marijuana Substance Use Frequency: Weekly Last Used Substance: Just Prior to Admission Currently Displaying Signs/Symptoms of Drug Intoxication Withdrawal: No Have you been hit, kicked, punched, or otherwise hurt by someone within the past year? If so, by whom?: No Do you feel safe in your current relationship?: Yes Is there a partner from a previous relationship who is making you feel unsafe now?: No Are you made to feel afraid or neglected: No Advance Directives: No Advance Directives Information Provided: Yes Advance Directives on File: No Do you have thoughts of harming others: None Do you have a plan to hurt others: No Plan Recently lost weight without trying: No Eating poorly because of decreased appetite: No Nutrition Risks: No Nutritional Risk Poor oral hygiene: No Meds Allergies Allergy/AdvReac Type Severity Reaction Status Date / Time No Known Allergies Allergy Verified 11/29/21 11:53 Active Medications: Current Medications Acetaminophen (Acetaminophen 325 Mg Tablet) 650 mg PO Q6H PRN PRN Reason: Pain, Mild (Pain Scale 1-3) Last Admin: 05/03/23 18:04 Dose: 650 mg Amlodipine Besylate (Amlodipine Besylate 2.5 Mg Tablet) 2.5 mg PO DAILY JOAO; Protocol Aspirin (Aspirin 81 Mg Tab.Chew) 81 mg PO DAILY JOAO Enoxaparin Sodium (Enoxaparin Sodium 40 Mg/0.4 Ml Syringe) 40 mg SUBCUT Q24H JOAO Last Admin: 05/03/23 17:59 Dose: 40 mg Hydrochlorothiazide (Hydrochlorothiazide 12.5 Mg Tablet) 12.5 mg PO DAILY [facility] Melatonin (Melatonin 3 Mg Tablet) 6 mg PO BEDTIME PRN PRN Reason: Insomnia Nitroglycerin (Nitroglycerin 0.4 Mg Tab.Subl) 0.4 mg SUBLINGUAL Q5MX3 PRN PRN Reason: Chest Pain Ondansetron HCl (Ondansetron Hcl 4 Mg/2 Ml Vial) 4 mg IVPUSH Q8H PRN PRN Reason: Nausea and Vomiting Sodium Chloride (0.9 % Sodium Chloride Flush 3 Ml Syringe) 3 ml IVFLUSH QSHIFT [facility] Last Admin: 05/04/23 06:26 Dose: Not Given Zolpidem Tartrate (Zolpidem Tartrate 5 Mg Tablet) 5 mg PO BEDTIME PRN PRN Reason: Insomnia Last Admin: 05/03/23 23:50 Dose: 5 mg Home Medications Medication Instructions Recorded Confirmed Last Taken Type amlodipine 2.5 mg tablet 2.5 mg PO DAILY 05/03/23 05/03/23 05/03/23 History lisinopril 20 1 tab PO DAILY 05/03/23 05/03/23 05/03/23 History mg-hydrochlorothiazide 12.5 mg tablet Physical Exam 2 Vital Signs: Vital Signs: Last Vital Signs Temp 97.8 F 05/04/23 07:17 Pulse 91 05/04/23 07:17 Resp 20 05/04/23 07:17 BP 135/86 05/04/23 07:17 Pulse Ox 94 05/04/23 07:17 O2 Del Method Room Air 05/04/23 07:17 BMI result Body Mass Index 23.8 Const: General: cooperative, comfortable, no acute distress, alert and awake Nutritional Appearance: thin Orientation/consciousness: patient oriented x3 Limitations: no limitations HEENT: Head: Yes normocephalic and Yes atraumatic Neck: Neck: Yes trachea midline, Yes supple and Yes no JVD Resp: Effort & Inspection: normal respiratory effort Auscultation: clear to auscultation bilaterally Cardio: Jugular venous distension: no JVD Palpation: normal PMI Rate: r egular rate Rhythm: regular rhythm Heart sounds: S1 normal heart sound present, S2 normal heart sound present, no click, no gallops, no murmurs and no rubs GI: Auscultation: normal bowel sounds Skin: General skin exam: no rashes or lesions noted Neuro: General: patient oriented x3 and no focal motor deficits Extrem: General: Yes no clubbing, cyanosis or edema Objective Labs and Meds 05/04/23 05:55 05/04/23 05:55 Lab results: Laboratory Results - last 24 hr 05/03/23 05/03/23 05/03/23 12:41 12:44 12:48 WBC 8.8 RBC 5.45 Hgb 16.6 D Hct 48.8 MCV 89.5 MCH 30.5 MCHC 34.0 RDW 14.4 Plt Count 219 MPV 10.3 Immature Gran % (Auto) 0.8 H Neut % (Auto) 83.6 H Lymph % (Auto) 7.1 L [place] % (Auto) 8.0 Eos % (Auto) 0.2 Baso % (Auto) 0.3 Lymph # (Auto) 0.6 L [place] # (Auto) 0.7 Eos # (Auto) 0.0 Baso # (Auto) 0.0 Abs Immat Gran (auto) 0.07 H Absolute Neuts (auto) 7.3 Absolute Nucleated RBC 0.000 Nucleated RBC % (auto) 0.0 D-Dimer High Sensitivty 291 VBG pH 7.47 H VBG pCO2 32 VBG pO2 30 VBG HCO3 24 VBG O2 Saturation 41.0 VBG Base Excess 1.3 Sodium 137 Potassium 5.9 H Chloride 97 Carbon Dioxide 24 Anion Gap 22 H BUN 10 Creatinine 1.41 H Estim Creat Clear Calc 71.2 Estimated GFR 53 POC Glucose Random Glucose 155 H Lactic Acid 6.5 H* Lactic Acid F/U @ 2Hr Calcium 10.0 Total Bilirubin AST ALT Alkaline Phosphatase Total Creatine Kinase Troponin I High Sens 4.1 Total Protein Albumin Hold Yellow Top Urine Color Urine Appearance Urine pH Ur Specific [place] Urine Protein Urine Glucose (UA) Urine Ketones Urine Blood Urine Nitrite Ur Leukocyte Esterase 05/03/23 05/03/23 05/03/23 15:11 18:45 19:44 WBC RBC Hgb Hct MCV MCH MCHC RDW Plt Count MPV Immature Gran % (Auto) Neut % (Auto) Lymph % (Auto) [place] % (Auto) Eos % (Auto) Baso % (Auto) Lymph # (Auto) [place] # (Auto) Eos # (Auto) Baso # (Auto) Abs Immat Gran (auto) Absolute Neuts (auto) Absolute Nucleated RBC Nucleated RBC % (auto) D-Dimer High Sensitivty VBG pH VBG pCO2 VBG pO2 VBG HCO3 VBG O2 Saturation VBG Base Excess Sodium Potassium Chloride Carbon Dioxide Anion Gap BUN Creatinine Estim Creat Clear Calc Estimated GFR POC Glucose 158 H Random Glucose Lactic Acid Lactic Acid F/U @ 2Hr 1.9 Calcium Total Bilirubin AST ALT Alkaline Phosphatase Total Creatine Kinase Troponin I High Sens < 2.7 Total Protein Albumin Hold Yellow Top Urine Color Yellow Urine Appearance Clear Urine pH 6.5 Ur Specific [place] >= 1.030 H Urine Protein Trace Urine Glucose (UA) Negative Urine Ketones Trace Urine Blood Negative Urine Nitrite Negative Ur Leukocyte Esterase Negative 05/03/23 05/04/23 20:37 05:55 WBC 4.4 L RBC 4.68 Hgb 14.5 Hct 42.4 MCV 90.6 MCH 31.0 MCHC 34.2 RDW 14.6 Plt Count 127 L D MPV 10.5 Immature Gran % (Auto) 0.5 H Neut % (Auto) 58.7 Lymph % (Auto) 22.2 [place] % (Auto) 15.6 H Eos % (Auto) 2.5 Baso % (Auto) 0.5 Lymph # (Auto) 1.0 L [place] # (Auto) 0.7 Eos # (Auto) 0.1 Baso # (Auto) 0.0 Abs Immat Gran (auto) 0.02 Absolute Neuts (auto) 2.6 Absolute Nucleated RBC 0.000 Nucleated RBC % (auto) 0.0 D-Dimer High Sensitivty VBG pH VBG pCO2 VBG pO2 VBG HCO3 VBG O2 Saturation VBG Base Excess Sodium 134 L 134 L Potassium 4.0 D 3.2 L Chloride 95 L 98 Carbon Dioxide 28 25 Anion Gap 15 14 BUN 10 13 Creatinine 1.02 0.76 Estim Creat Clear Calc 98.4 132.1 Estimated GFR > 60 > 60 POC Glucose Random Glucose 107 101 Lactic Acid Lactic Acid F/U @ 2Hr Calcium 9.2 D 9.0 Total Bilirubin 1.9 H AST 88 H ALT 78 H Alkaline Phosphatase 70 Total Creatine Kinase 112 Troponin I High Sens Total Protein 7.2 Albumin 3.5 Hold Yellow Top See Note Urine Color Urine Appearance Urine pH Ur Specific [place] Urine Protein Urine Glucose (UA) Urine Ketones Urine Blood Urine Nitrite Ur Leukocyte Esterase Imaging Radiologist's impression: Impressions Chest X-Ray 05/03/23 13:08 IMPRESSION: Lungs have a normal appearance. No acute cardiopulmonary abnormality. Chest CTA 05/03/23 15:55 IMPRESSION: No evidence of pulmonary embolism. No evidence for acute disease in the chest. Moderate coronary artery calcification. VTE: negative Assessment and Plan (1) Chest pain: Status: Acute New onset anginal sounding chest discomfort after exertional activity preceded by lightheadedness. On admission he did not have any significant high risk features with no significant abnormality of EKG or troponins. He does have risk factors of hypertension. Reasonable to perform a inpatient stress test to evaluate for myocardial ischemia at high risk features that may necessitate further workup with invasive cardiac catheterization. If stress test at high workload is within normal limits, unlikely that this represents symptoms related to myocardial ischemia/obstructive coronary artery disease. This was discussed with him. Will schedule a regular treadmill stress test today. Further treatment based on the findings. Noted to have significant hyperkalemia on admission and would therefore hold off on lisinopril therapy. His lightheadedness could be orthostatic lightheadedness from relative hypovolemia which could also cause both hypokalemia as well as lactic acidosis. I would just switch him to amlodipine 5 mg for blood pressure control. Will follow up as outpatient. Procedures Date of Service Date of Service: 05/04/23
[2023-05-04] MEDS: amLODIPine Besylate 2.5 MG TABLET PO (09:20)
[2023-05-04] MEDS: 0.9 % Sodium Chloride Flush 3 ML SYRINGE IVFLUSH (09:20)
[2023-05-04] MEDS: Aspirin 81 MG TAB.CHEW PO (09:20)
[2023-05-04] MEDS: Acetaminophen 325 MG TABLET 650 MG PO (09:20)
[2023-05-04] MEDS: hydroCHLOROthiazide 12.5 MG TABLET PO (09:20)
[2023-05-04 11:20] VITALS: BP 131/95; PULSE 107; RESP 20; TEMP 36.1; O2SAT 97
--- NOTE | 2023-05-04 12:36 | MHC.CM.PN ---
Pt self-care, he lives at home with his mother. Pt will need assistance with transport at D/C. Pt has no PCP, CM assistant produce manager was able to obtain a new PCP appointment with pt on June 21 with [employer] [employer], Andie Del Angel, pt aware and very grateful. Pt education on HCP, and offered assistance to complete, pt declined at this time.
--- NOTE | 2023-05-04 13:33 | PM.DS ---
DS: Providers Provider Date of Service: 05/04/23 Date of admission: 05/04/23 11:25 Date of discharge: 05/04/23 Primary care physician: None Physician Consults: 05/03/23 16:48 Consult to Cardiology Routine [place]ing [place] [facility] [place] [facility] Reason for consultation: Chest pain Has provider been notified: Yes DS: Diagnosis Discharge Diagnosis (1) Chest pain: Status: Acute DS: Summary Hospital Course Hospital Course: 52-year-old man with history of hypertension presented to the ER with complaints of sudden onset central, nonradiating, constant, 7/10 chest pain. He also reports a hard time catching his breath, diffuse cramping to legs and arms. 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 He developed chest pain at that time and had for at least 2 hours. Denied nausea, vomiting, diarrhea, recent travel, sick contacts, recent illness. Potassium noted to be elevated at 5.9, initial lactic acid 6.5 down to 1.9, creatinine 1.41, troponin 2.7. EKG shows peaked T-waves and normal sinus rhythm without any ischemic changes. Chest x-ray without consolidation or effusion. Vital signs are stable. Plan is to place the patient on observation for chest pain. [facility] Admitted to telemetry overnight where monitor failed to demonstrate any acute dysrhythmias. He was ruled out by EKG and enzymes. On the day of discharge he under went a treadmill stress test during which he exercised for 8 minute 12 seconds of Tho protocol achieving 96% of his maximum predicted heart rate. There were no ST T wave changes noted. He was seen in consultation by Cardiology who felt this was not cardiac related. He did complain of some GI related symptoms for which he will be started on omeprazole 40 mg daily. He is arranging for new PCP and follow-up next available Time Attestation Discharge Coordination Time (in mins): 35 Quality: Safe Use of Opioids Does Pt have an Active Cancer Diagnosis on the Problem List?: No Quality: Stroke Does the patient have a stroke diagnosis?: No Physical Exam Vital Signs: Vital Signs: Last Vital Signs Temp 96.9 F 05/04/23 11:20 Pulse 107 H 05/04/23 11:20 Resp 20 05/04/23 11:20 BP 131/95 H 05/04/23 11:20 Pulse Ox 97 05/04/23 11:20 O2 Del Method Room Air 05/04/23 11:20 BMI result Body Mass Index 23.8 Const: Other: Awake alert no acute distress Resp: Other: Clear to auscultation bilaterally no rales rhonchi or wheezes Cardio: Other: No S4; positive S1-S2; no S3 murmurs rubs or gallops GI: Other: Soft nontender nondistended normoactive bowel sounds Extrem: Other: No edema bilaterally DS: Data Data Completed and Pending Labs on day of discharge: Laboratory Results - last 24 hr 05/03/23 05/03/23 05/03/23 12:44 15:11 18:45 WBC RBC Hgb Hct MCV MCH MCHC RDW Plt Count MPV Immature Gran % (Auto) Neut % (Auto) Lymph % (Auto) [place] % (Auto) Eos % (Auto) Baso % (Auto) Lymph # (Auto) [place] # (Auto) Eos # (Auto) Baso # (Auto) Abs Immat Gran (auto) Absolute Neuts (auto) Absolute Nucleated RBC Nucleated RBC % (auto) Sodium Potassium Chloride Carbon Dioxide Anion Gap BUN Creatinine Estim Creat Clear Calc Estimated GFR POC Glucose Random Glucose Lactic Acid 6.5 H* Lactic Acid F/U @ 2Hr 1.9 Calcium Total Bilirubin AST ALT Alkaline Phosphatase Total Creatine Kinase Troponin I High Sens < 2.7 Total Protein Albumin Hold Yellow Top Urine Color Yellow Urine Appearance Clear Urine pH 6.5 Ur Specific Walker >= 1.030 H Urine Protein Trace Urine Glucose (UA) Negative Urine Ketones Trace Urine Blood Negative Urine Nitrite Negative Ur Leukocyte Esterase Negative 05/03/23 05/03/23 05/04/23 19:44 20:37 05:55 WBC 4.4 L RBC 4.68 Hgb 14.5 Hct 42.4 MCV 90.6 MCH 31.0 MCHC 34.2 RDW 14.6 Plt Count 127 L D MPV 10.5 Immature Gran % (Auto) 0.5 H Neut % (Auto) 58.7 Lymph % (Auto) 22.2 [place] % (Auto) 15.6 H Eos % (Auto) 2.5 Baso % (Auto) 0.5 Lymph # (Auto) 1.0 L [place] # (Auto) 0.7 Eos # (Auto) 0.1 Baso # (Auto) 0.0 Abs Immat Gran (auto) 0.02 Absolute Neuts (auto) 2.6 Absolute Nucleated RBC 0.000 Nucleated RBC % (auto) 0.0 Sodium 134 L 134 L Potassium 4.0 D 3.2 L Chloride 95 L 98 Carbon Dioxide 28 25 Anion Gap 15 14 BUN 10 13 Creatinine 1.02 0.76 Estim Creat Clear Calc 98.4 132.1 Estimated GFR > 60 > 60 POC Glucose 158 H Random Glucose 107 101 Lactic Acid Lactic Acid F/U @ 2Hr Calcium 9.2 D 9.0 Total Bilirubin 1.9 H AST 88 H ALT 78 H Alkaline Phosphatase 70 Total Creatine Kinase 112 Troponin I High Sens Total Protein 7.2 Albumin 3.5 Hold Yellow Top See Note Urine Color Urine Appearance Urine pH Ur Specific Walker Urine Protein Urine Glucose (UA) Urine Ketones Urine Blood Urine Nitrite Ur Leukocyte Esterase Preliminary micro results at discharge 05/03/23 17:35 Urine Culture - Preliminary Urine Catheterized - [place] Catheter No growth to date. Discharge Plan Discharge Anticipated Discharge Date/Time: 05/04/23 13:29 Patient Disposition: Home, Self-Care Discharge Diagnosis: Atypical chest pain Referrals: Andie Card FNP-KILLIAN [Nurse Practitioner] - 06/22/23 12:30 pm (You have a new patient appointment scheduled. If you can not make this appointment please call office to reschedule. ) Discharge Medications: New omeprazole 40 mg capsule,delayed release(DR/EC) 40 mg PO DAILY Qty: 30 3RF Continued lisinopril-hydrochlorothiazide 20-12.5 mg tablet 1 tab PO DAILY amlodipine 2.5 mg tablet 2.5 mg PO DAILY Discharge Orders: Discharge Order (Routine); Ordered 05/04/23 Ordered By: Augie Vines Diet: Advance to usual diet Activity on Discharge: As tolerated Stand Alone Forms: Patient Portal Discharge page Care Plan Goals: His stress test was negative. Resume all your medicines as taken prior to the hospital Health Concerns: Omeprazole 40 mg daily has been added to your regimen. Continue this until seen by a new PCP Plan of Treatment: Follow-up with new PCP as scheduled Assessment: See discharge summary
--- NOTE | 2023-05-04 13:48 | MHC.CM.PN ---
Pt is medically cleared for D/C home self-care, transport booked via [facility] [facility] [facility].
== END 2023-05-04 13:58 | disposition home or self-care (01) | DRG 203 ==
LOC: HO.ED 17:13 → HO.EDOVER 17:25 → HO.IMC 18:10
PROVIDERS: Admitting Provider Nurse Practitioner Acute Care; Emergency Provider Student in an Organized Health Care Education/Training Program; Visit Provider Hospitalist
DX: R07.9 Chest pain, unspecified (principal); N17.9 Acute kidney failure, unspecified; I10 Essential (primary) hypertension; E87.5 Hyperkalemia; Z93.3 Colostomy status; Z85.038 Personal history of other malignant neoplasm of large intestine; Z79.899 Other long term (current) drug therapy
CPT/HCPCS: 36415; 71046; 71275; 80048; 80053; 81003; 82550; 82803; 82947; 83605; 84484; 85025; 85379; 87040; 87086; 93005; 93017; 99285; J0613; J1650; J2060; Q9967

== ENCOUNTER → 2023-05-03 12:30 | Outpatient (BNV) | payer OTHER, SELFPAY | PROVIDERS: Emergency Provider Student in an Organized Health Care Education/Training Program; Visit Provider Internal Medicine Cardiovascular Disease | DX: I45.81 Long QT syndrome (principal) | CPT/HCPCS: 93010 ==

== ENCOUNTER → 2023-05-03 16:48 | Outpatient (BNV) | payer OTHER, SELFPAY | PROVIDERS: Admitting Provider Nurse Practitioner Acute Care; Emergency Provider Student in an Organized Health Care Education/Training Program; Visit Provider Internal Medicine Cardiovascular Disease | DX: R07.9 Chest pain, unspecified (principal) | CPT/HCPCS: 99222 ==

== ENCOUNTER → 2023-05-04 10:28 | Outpatient (BNV) | payer OTHER, SELFPAY | PROVIDERS: Admitting Provider Nurse Practitioner Acute Care; Emergency Provider Student in an Organized Health Care Education/Training Program; Visit Provider Nurse Practitioner | DX: R06.02 Shortness of breath (principal); R07.9 Chest pain, unspecified | CPT/HCPCS: 93016; 93018 ==

== ENCOUNTER → 2023-05-04 11:25 | Outpatient (BNV) | payer OTHER, SELFPAY | PROVIDERS: Admitting Provider Nurse Practitioner Acute Care; Emergency Provider Student in an Organized Health Care Education/Training Program; Visit Provider Hospitalist | DX: R07.9 Chest pain, unspecified (principal) | CPT/HCPCS: 99222; 99239 ==

== ENCOUNTER 2023-05-26 09:52 | Outpatient (AMB) | payer OTHER, SELFPAY ==
--- NOTE | 2023-05-26 10:01 | A.OFFPC_ITS ---
Vital Signs 05/26/23 10:02 Height 6 ft 2 in Weight 182 lb 4 oz BMI 23.4 BP 130/64 Blood Pressure Location Rt brachial Position Sitting Respiration 12 Pulse 122 H Pulse Source Pulse Oximeter Pulse Oximetry (%) 98 Oxygen Delivery Method Room Air Intake Visit Reasons: est care/ request PE Intake Note: Patient is here to establish care. Patient moved from [place], [place]. Patient reports he was on oxycodone for neuropathy and lorazepam for anxiety with prior doctor. Patient admits he is noncompliant with blood pressure and other medications. Patient reports he had colorectal cancer and see's Dr. Coni Nolasco, Oncology as well as Dr. Rajesh Mclaughlin for PCP. Satellite Installation Technician Required: No Accompanied by: Self / Same As Patient Allergies No Known Allergies Allergy (Verified 05/26/23 10:35) Medication List - Last Reconciled 05/26/23 by Andie Card, COMMUNITY MUSIC THERAPIST- amlodipine 2.5 mg PO DAILY lisinopril-hydrochlorothiazide 20-12.5 mg 1 tab PO DAILY omeprazole 40 mg PO DAILY Tobacco use date assessed: 05/26/23 Dental Screening Dental Screen Date: 05/26/23 Did you have a dental visit in the last 12 months?: Yes Did you have a dental problem in the last 6 months where you did not have access to dental care?: No Was dental information given to patient?: Patient has dentist HPI HPI Comments History of Present Illness Details 52-year-old male with hypertension, GERD , Rectal adenocarcinoma stage III cancer dx in 2018 s/p chemo and radiation & left-sided colostomy, neuropathy , anxiety, MDD, lumbar sacral radiculopathy L5-S1, sleep disorder, iron deficiency anemia Here today for hospital discharge follow up. Admitted to [facility] on 05/03/2023 for central chest pain. Discharged home with no services on 05/04/2023. EKG was nonspecific. He was monitored on telemetry. Cardiology was consulted. Neuro to have MADDIE and hyperkalemia. Treated with Lokelma, IV fluids. Admitted to telemetry overnight where monitor failed to demonstrate any acute dysrhythmias. He was ruled out by EKG and enzymes. On the day of discharge he under went a treadmill stress test during which he exercised for 8 minute 12 seconds of Tho protocol achieving 96% of his maximum predicted heart rate. There were no ST T wave changes noted. He was seen in consultation by Cardiology who felt this was not cardiac related. He did complain of some GI related symptoms for which he will be started on omeprazole 40 mg daily Discharge Medications: New omeprazole 40 mg capsule,delayed release(DR/EC) 40 mg PO DAILY Qty: 30 3RF Continued lisinopril-hydrochlorothiazide 20-12.5 mg tablet 1 tab PO DAILY amlodipine 2.5 mg tablet 2.5 mg PO DAILY Here today. Reports he did not receive any refills on his blood pressure medications. Therefore he has only been taking 1 of the above tablets every 4 days to ration what he has left. He denies any cardiac pain. Denies any GI symptoms. Does admit lots of anxiety and depression along with poly neuropathic pain. Records reviewed. He was due for repeat colonoscopy in September of 2022. Due to labs insurance he did not have this done. He was traveling to [place] for his primary care as well as his oncology care. He has no car at the current time. He needs to establish care locally. He lives in [place]. Interested in referral to [facility]'s GI and Oncology team. [facility] Medical History (Updated 05/26/23 @ 12:10 by [facility] Colostomy in place Colorectal cancer Hypertension Surgical History (Updated 05/26/23 @ 10:31 by Radha Denson CMA) History of colon surgery Family History Mother Dementia Social History (Updated 05/26/23 @ 10:13 by Radha Denson CMA) Household Members: Family Household Members Other:: Takes care of mother who has Dementia Housing: House Are you a primary client care representative to a significant other at home: No Do you presently have visiting nurse or other home services: No 75 years or older and lives alone: No Alcohol intake: current Alcohol intake frequency: a few times a week Alcohol type: beer Patient Tobacco Use Status: Never used Tobacco e-Cigarette/Vaping Use: Never Used Second Hand Smoke Exposure: No Substance Use Type: Marijuana service: No Current occupational status: unemployed 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 1. Little interest or pleasure in doing things: more than half the days 2. Feeling down, depressed, or hopeless: more than half the days 3. Trouble falling or staying asleep, or sleeping too much: not at all 4. Feeling tired or having little energy: nearly every day 5. Poor appetite or overeating: nearly every day 6. Feeling bad about yourself - or that you are a failure or have let yourself or your family down: more than half the days 7. Trouble concentrating on things, such as reading the newspaper or watching television: several days 8. Moving or speaking so slowly that other people could have noticed. Or the opposite - being so fidgety or restless that you have been moving around a lot more than usual: several days 9. Thoughts that you would be better off or of hurting yourself in some way: not at all Total score: 14 Depression Screening Interpretation: Positive Depression Screening Follow-up: Existing condition and New Medication prescribed Depression Screening Done: Yes 31849 - PHQ-9 Billing: Yes Source: Developed by Drs. Adam Cintron, Marlena Berrios, Aguilar Castelan and colleagues, with an educational deidre from [employer]. Thrive Questionnaire Date Thrive assessed: 05/04/23 I am a: Parent/Caregiver What is your living situation today?: I choose not to answer this question Within the past 12 months, did the food you bought not last and you didn't have the money to get more?: I choose not to answer this question Within the past 12 months, did you worry whether your food would run out before you got money to buy more?: I choose not to answer this question Do you have trouble paying for medicines?: I choose not to answer this question Do you have trouble getting transportation to medical appointments?: I choose not to answer this question Do you have trouble paying your heating and electricity bill?: I choose not to answer this question Do you have trouble taking care of your child, family member or friend?: I choose not to answer this question Do you have trouble with day-to-day activities such as bathing, preparing meals, shopping, managing finances, etc.?: I choose not to answer this question Are you currently unemployed and looking for a job?: I choose not to answer this question Are you interested in more education?: I choose not to answer this question Please select the resources that you would like help with: Transportation Currently or been in a relationship where the following occur: I choose not to answer this question THRIVE Score: 0 AUDIT C Alcohol Use Questionnaire (AUDIT-C) 1. How often do you have a drink containing alcohol?: Never 2. How many drinks containing alcohol do you have on a typical day when you are drinking?: 1 or 2 3. How often do you have six or more drinks on one occasion?: Never Total Score: 0 Score Reviewed/Action Taken: Yes ADA-7 AMB Questionnaire ADA-7 Date ADA - 7 assessed: 05/26/23 Feeling nervous, anxious, or on edge: 3 = Nearly every day Not being able to stop or control worryin = More than half the days Worrying too much about different things: 3 = Nearly every day Trouble relaxin = Nearly every day Being so restless that it is hard to sit still: 3 = Nearly every day Becoming easily annoyed or irritable: 2 = More than half the days Feeling afraid as if something awful might happen: 1 = Several days Total ADA-7 score (0-4 normal; 5-9 mild; 10-14 moderate; 15-21 severe): 17 Source: Developed by Drs. Adam Cintron, Marlena Berrios, Aguilar Castelan and colleagues, with an educational deidre from [employer]. ADA-7 Assessment Billing ADA-7 Assessment Tool: ADA-7 Assessment 39307 Review of Systems Const All systems reviewed & are unremarkable except as noted in HPI and below Physical exam (Primary Care) Vital Signs: Last Vital Signs Pulse 122 H 05/26/23 10:02 Resp 12 05/26/23 10:02 BP 130/64 05/26/23 10:02 Pulse Ox 98 05/26/23 10:02 Oxygen Delivery Method Room Air 05/26/23 10:02 BMI result Body Mass Index 23.4 Tobacco/Smoking Status: Tobacco use Status Tobacco use date assessed 05/26/23 05/26/23 10:17 Patient Tobacco Use Status Never used Tobacco 05/26/23 10:17 e-Cigarette/Vaping Use Never Used 05/26/23 10:17 PHQ-9: PHQ-9 Score PHQ-9: Total score 14 05/26/23 10:35 Depression Screening Interpretation: Positive Depression Screening Follow-up: Existing condition and New Medication prescribed Thrive Assessment: Date of Thrive Assessment Date Thrive assessed 05/04/23 05/26/23 10:17 Currently or been in a relationship where the following occur: I choose not to answer this question Advance Care Planning discussion: Exists, not on file Date of discussion: 05/26/23 Who was present: SELF Forms completed: Health Care Proxy (BLANK FORM GIVEN TO HIM TODAY ) Time spent: 1-15 minutes, not on file Assessment and Plan Assessment & Plan (1) Hospital discharge follow-up: Code(s): Z09 - Encounter for follow-up examination after completed treatment for conditions other than malignant neoplasm Plan: Recommend that he continue the omeprazole 40 mg daily. We will have GI further manage. (2) Rectal adenocarcinoma: Comment: Rectal adenocarcinoma stage III cancer dx in 2018 s/p chemo and radiation & left-sided colostomy Was managed at [place]. He does not have transportation needs to establish care locally. I have placed a referral to [facility]'s GI team. He is overdue for a colonoscopy. Records indicate he was due in 2022. I have also referred him to [facility]'s oncology team for routine care. Code(s): C20 - Malignant neoplasm of rectum (3) Colostomy in place: Comment: Due to rectal adenocarcinoma Code(s): Z93.3 - Colostomy status (4) Hypertension: Comment: Blood pressure at goal today. Reports he took his medications today. I have sent in a refill of his current medications lisinopril-hydrochlorothiazide 20- 12.5 mg p.o. daily and amlodipine 2.5 mg daily. Code(s): I10 - Essential (primary) hypertension Qualifiers: Hypertension type: primary hypertension Qualified Code(s): I10 - Essential (primary) hypertension (5) ADA (generalized anxiety disorder): Comment: Was on venlafaxine 150 mg in the past. Has been without this for 2 years. We will start him on Cymbalta 20 mg p.o. b.i.d. and bring him back to assess effectiveness. Code(s): F41.1 - Generalized anxiety disorder (6) MDD (major depressive disorder), recurrent episode: Comment: Was on venlafaxine 150 mg in the past. Has been without this for 2 years. We will start him on Cymbalta 20 mg p.o. b.i.d. and bring him back to assess effectiveness. Code(s): F33.9 - Major depressive disorder, recurrent, unspecified Qualifiers: Major depression episode severity: moderate Qualified Code(s): F33.1 - Major depressive disorder, recurrent, moderate (7) Polyneuropathy: Comment: From his chemotherapy. Was treated with gabapentin in the past without effect. Reports he was also maintained on oxycodone. Last time was 2 years ago. We will not restart narcotics. Plan will be to start him on Cymbalta 20 mg p.o. b.i.d. and titrate to effect. Code(s): G62.9 - Polyneuropathy, unspecified (8) Transportation insecurity due to lack of access to vehicle: Comment: Refer to nurse navigator for help. Code(s): Z59.82 - Transportation insecurity Plan This note is constructed using voice recognition software. While every effort has been made to ensure accuracy in mobile qa tester, still errors may have been included Sometimes, these errors may affect the content or meaning of the given sentence . Total time spent caring for the patient today was 60 minutes. This includes time spent before the visit reviewing the chart, time spent during the visit, and time spent after the visit on documentation Orders: Referrals Hematology & Oncology Referral C20 - Malignant neoplasm of rectum, Z93.3 - Colostomy status Nurse Navigator Referral Z59.82 - Transportation insecurity Gastroenterology Referral C20 - Malignant neoplasm of rectum, Z93.3 - Colostomy status Medications: New duloxetine (Cymbalta) 20 mg PO BID 60 caps 1RF amlodipine 2.5 mg PO DAILY 90 tabs 0RF lisinopril-hydrochlorothiazide 20-12.5 mg 1 tab PO DAILY 90 tabs 0RF Patient Instructions: Return to office in 2-3 weeks to follow up on hypertension and poly neuropathic pain. Coding Level of Care Code New Pt Level 5 (69013) Diagnoses Hospital discharge follow-up Z09 Rectal adenocarcinoma C20 [address] Z93.3 Primary hypertension I10 Hypertension type: primary hypertension ADA (generalized anxiety disorder) F41.1 Moderate episode of recurrent major depressive disorder F33.1 Major depression episode severity: moderate Polyneuropathy G62.9 Transportation insecurity due to lack of access to vehicle Z59.82 Additional Codes ADA-7 Assessment Billing - ADA-7 Assessment Tool: ADA-7 Assessment 80963 ([id number]) Vital Signs *Quality* - Advance Care Planning discussion: Exists, not on file ([id number]) Vital Signs *Quality* - Time spent: 1-15 minutes, not on file ([id number])
[2023-05-26 10:02] VITALS: BP 130/64; PULSE 122; RESP 12; O2SAT 98; BMI 23.4
== END 2023-05-26 12:06 | disposition home or self-care (01) ==
PROVIDERS: Visit Provider Nurse Practitioner Family
DX: I10 Essential (primary) hypertension (principal); C20 Malignant neoplasm of rectum; Z93.3 Colostomy status; F33.1 Major depressive disorder, recurrent, moderate; Z00.00 Encounter for general adult medical examination without abnormal findings; Z09 Encounter for follow-up examination after completed treatment for conditions other than malignant neoplasm; F41.1 Generalized anxiety disorder; G62.9 Polyneuropathy, unspecified; Z59.82 Transportation insecurity
CPT/HCPCS: 1124F; 96127; 99205

== ENCOUNTER 2024-12-14 09:10 | Outpatient (AMB) | payer OTHER, SELFPAY ==
--- NOTE | 2024-12-14 09:14 | MHC.OFFWIV ---
Intake Vital Signs 12/14/24 09:20 12/14/24 09:53 Height 6 ft 2 in Weight 166 lb BMI 21.3 BP 186/90 H 164/82 H Blood Pressure Location Lt brachial Lt brachial Position Sitting Sitting Pulse 76 Pulse Source Pulse Oximeter Temp 97.6 F Temp Source Oral Pulse Oximetry (%) 99 Oxygen Delivery Method Room Air Intake Visit Reasons: ep poison sumac [phone] Intake Note: Patient presents with c/o rash on hands x3 weeks & worsening - unsure if poison sumac Patient Tobacco Use Status: Never used Tobacco Allergies No Known Allergies Allergy (Verified 12/14/24 09:15) Medication List - Last Reconciled 12/14/24 by Radhika Schroeder MD amlodipine 2.5 mg PO DAILY duloxetine (Cymbalta) 20 mg PO BID lisinopril-hydrochlorothiazide 20-12.5 mg 1 tab PO DAILY omeprazole 40 mg PO DAILY Do you need a note to return to daycare/school/sports/work: No HPI HPI Comments History of Present Illness Details History of Present Illness The patient is a 54-year-old male presenting with exacerbation of contact dermatitis secondary to poison joellen/sumac. Contact Dermatitis secondary to Poison Joellen/Sumac exposure: - The patient reports a rash present for approximately three weeks. - The rash began after handling firewood possibly contaminated with poison joellen or sumac. - Initially localized on one hand, it then spread to multiple areas on both hands - The patient describes the rash as uncomfortable, occasionally itchy, and increasingly inflamed. - Attempts at treatment with hydrocortisone cream were made for several weeks without improvement. - The rash has progressively worsened and spread to the other hand. Essential Hypertension: - The patient is currently out of prescribed blood pressure medications. - Previous prescriptions included amlodipine and combination lisinopril and hydrochlorothiazide. - The patient has a history of transportation difficulties, impacting medication acquisition. - The patient denies symptoms such as headaches, dizziness, vision changes, chest pain, or shortness of breath. Review of Systems - Skin: Reports rash associated with itching - Cardiovascular: Denies chest pain, and shortness of breath. - Neurological: Denies headaches, dizziness, changes in vision, or focal weakness Physical Exam General Appearance: Normal appearance, well developed. No acute distress Head: Normocephalic, atraumatic Pulmonary: No respiratory distress. Speaking in full sentences Skin: Erythematous skaly rash present along the dorsum of the left hand and between the digits of the right hand Musculoskeletal: Moving all extremities spontaneously and against gravity Mental Status: Alert and Oriented x 3 Psychiatric: Normal mood. Normal affect. [facility] Medical History (Updated 12/14/24 @ 09:50 by Radhika Schroeder MD) Colostomy in place Colorectal cancer Hypertension Surgical History (Updated 05/26/23 @ 10:31 by Radha Denson CMA) History of colon surgery Family History Mother Dementia Social History (Updated 05/26/23 @ 10:13 by Radha Denson CMA) Household Members: Family Household Members Other:: Takes care of mother who has Dementia Housing: House Are you a primary intensive care ambulance paramedic to a significant other at home: No Do you presently have visiting nurse or other home services: No 75 years or older and lives alone: No Alcohol intake: current Alcohol intake frequency: a few times a week Alcohol type: beer Patient Tobacco Use Status: Never used Tobacco e-Cigarette/Vaping Use: Never Used Second Hand Smoke Exposure: No Substance Use Type: Marijuana service: No Current occupational status: unemployed 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 Current occupational exposures/hazards: No Cognitive needs: No Hearing needs: No Vision needs: No Physical Exam Vital Signs: Last Vital Signs Temp 97.6 F 12/14/24 09:20 Pulse 76 12/14/24 09:20 BP 186/90 H 12/14/24 09:20 Pulse Ox 99 12/14/24 09:20 Oxygen Delivery Method Room Air 12/14/24 09:20 BMI result Body Mass Index 21.3 Assessment & Plan Assessment & Plan (1) Hypertension: Code(s): I10 - Essential (primary) hypertension Qualifiers: Hypertension type: primary hypertension Qualified Code(s): I10 - Essential (primary) hypertension (2) Contact dermatitis: Code(s): L25.9 - Unspecified contact dermatitis, unspecified cause Qualifiers: Contact dermatitis type: irritant Contact dermatitis trigger: non-food plants Qualified Code(s): L24.7 - Irritant contact dermatitis due to plants, except food Plan Assessment and Plan 1. Contact Dermatitis - Initiate treatment with a prescription-strength topical corticosteroid cream, to be applied twice daily to the affected areas. - Patient concerned topical steroids may not be as helpful as hydrocortisone did not help. Advised if worsening symptoms or no improvement with topical cream, may take oral prednisone taper as prescribed. - Specific taper instructions provided. - Discussed temporary increase in blood sugars while taking steroids. Patient was also informed about potential side effects such as insomnia and upset stomach. 2. Essential Hypertension - Currently asymptomatic - Prescription refills for amlodipine and lisinopril hydrochlorothiazide combination were refilled for 1 month supply - Monitor BP at home - Encouraged the patient to reestablish care with their primary care physician for ongoing management. Medications: New triamcinolone acetonide 0.1% 1 appl topical BID 30 grams 0RF prednisone take 4 tablets on days 1-3, take 3 tablets on days 4-6, take 2 tablets on days 6-9, take 1 tablet on days 10-12. 10 mg PO DIRECTED 30 tabs 0RF Refilled lisinopril-hydrochlorothiazide 20-12.5 mg 1 tab PO DAILY 30 tabs 0RF amlodipine 2.5 mg PO DAILY 30 tabs 0RF Coding Level of Care Code Est Pt Level 3 (99066) Diagnoses Primary hypertension I10 Hypertension type: primary hypertension Irritant contact dermatitis due to plants, except food L24.7 Contact dermatitis type: irritant Contact dermatitis trigger: non-food plants
[2024-12-14 09:20] VITALS: BP 186/90; PULSE 76; TEMP 36.4; O2SAT 99; BMI 21.3
[2024-12-14 09:53] VITALS: BP 164/82
== END 2024-12-14 10:09 | disposition home or self-care (01) ==
PROVIDERS: PCP Nurse Practitioner Family; Visit Provider Family Medicine
DX: I10 Essential (primary) hypertension (principal); L24.7 Irritant contact dermatitis due to plants, except food

== ENCOUNTER → 2024-12-14 09:10 | Outpatient (BNVA) | payer OTHER, SELFPAY | PROVIDERS: PCP Nurse Practitioner Family; Visit Provider Family Medicine | DX: L24.7 Irritant contact dermatitis due to plants, except food (principal); I10 Essential (primary) hypertension | CPT/HCPCS: 99212 ==